=== PATIENT | male | born 1960 | race Caucasian/White ===

== ENCOUNTER 2016-07-12 08:57 | Emergency (ER) ==
[2016-07-12 09:04] VITALS: BP 203/109; TEMP 96.7; BMI 28.3
[2016-07-12] MEDS ORDERED: NITROSTAT SL PRN (09:16)
--- NOTE | 2016-07-12 09:18 | ED.PDOC ---
General ED Provider: Dr. COCO HERNANDEZ JR Chief Complaint: Hypertension Stated Complaint: started having high blood pressure 1 week ago. feels shaky. states he has had intermittent chest pain for 3 days. states he has been taking his medicine [End]1 WEEK 96.7 71 18 97 203/109 10 227/145 AT HOME Time Seen by Physician: 09:17 Mode of Arrival: Walk-In Information Source: Patient Exam Limitations: No limitations Primary Care Provider: JASMIN CARRERA Nursing and Triage Documentation Reviewed and Agree: No Review of Systems - Review Of Systems Constitutional: Reports: Malaise Eyes: Reports: No symptoms Ears, Nose, Mouth, Throat: Reports: No symptoms Respiratory: Reports: No symptoms Cardiac: Reports: Chest pain (midsternal pleuritic) GI: Reports: No symptoms : Reports: No symptoms Musculoskeletal: Reports: Other Skin: Reports: No symptoms Neurological: Reports: No symptoms Endocrine: Reports: No symptoms Hematologic/Lymphatic: Reports: No symptoms All Other Systems: Other Past Medical History - Past Medical History Endocrine: Reports: None Cardiovascular: Reports: [place], Hypertension Respiratory: Reports: None Hematological: Reports: None Gastrointestinal: Reports: None Genitourinary: Reports: None Neuro/Psych: Reports: Other (HTN [place] pins to left arm, fell off roof in 1997 and was in coma for 9 days -states head injury from crowbr into skull at that time) Musculoskeletal: Reports: None Cancer: Reports: None Other Pertinent Past Medical History: HTN [place] pins to left arm, fell off roof in 1997 and was in coma for 9 days - Surgical History General Surgical History: Reports: Orthopedic (HTN [place] pins to left arm, fell off roof in 1997 and was in coma for 9 days ) - Family History Family History: Reports: Unknown - Social History Smoking Status: Current every day smoker, Heavy tobacco smoker Hx Substance Use: No Alcohol Screening: None Physical Exam - Physical Exam Appearance: Well-appearing Ill-appearing: Mild Pain Distress: Mild Eyes: BANDAR, EOMI, Conjunctiva clear ENT: Ears normal, Nose normal, Oropharynx normal Neck: Supple Respiratory: Airway patent, Breath sounds equal, Respirations nonlabored, Rhonchi Cardiovascular: RRR, Pulses normal, No rub, No murmur GI/: Soft, Tender (epigasstrium and whole abdomen sim9at to pain with chest wallpalpation (midsternal tenderness)) Musculoskeletal: Normal strength, ROM intact, No edema, No calf tenderness Skin: Warm, Dry, Normal color Neurological: Sensation intact, Motor intact, Reflexes intact, Cranial nerves intact, Alert, Oriented (slow to answer- defers to head injury) Psychiatric: Affect appropriate, Mood appropriate Interpretation - Radiology Interpretation Radiology Interpretation By: Radiologist Radiology Results: Negative Exam Interpreted: CT Scan (abdomen- unchanged liver lesion) Radiology Interpretation By: Radiologist Radiology Results: No acute changes Exam Interpreted: CXR - EKG Interpretation Time of EKG #1: 09:25 Rate: Normal Rhythm: Sinus [place]: Left Re-Evaluation - Re-Evaluation Time of Re-Evaluation: 10:30 (torres dlab ddimeris in ng not mg not elevated) Critical Care Note - Critical Care Note Total Time (mins): 10 Course - Course Hematology/Chemistry: 07/12/16 09:20 07/12/16 09:20 Orders, Labs, Meds: Lab Review 07/12/16 09:20 WBC 7.55 RBC 4.71 Hgb 14.2 Hct 43.0 MCV 91.3 MCH 30.1 MCHC 33.0 RDW Coeff of Chance 12.8 Plt Count 186 Immature Gran % (Auto) 0.3 Neut % (Auto) 63.8 Lymph % (Auto) 23.4 [place] % (Auto) 9.1 Eos % (Auto) 2.6 Baso % (Auto) 0.8 Immature Gran # (Auto) 0.0 Neut # 4.8 Lymph # 1.8 [place] # 0.7 Eos # 0.2 Baso # 0.1 D-Dimer 369.85 H Sodium 141 Potassium 4.0 Chloride 105 Carbon Dioxide 28 Anion Gap 12.0 BUN 12 Creatinine 1.17 H Estimated GFR (MDRD) 65.00 BUN/Creatinine Ratio 10.25 Glucose 91 Calcium 8.8 Total Bilirubin 0.36 AST 18 ALT 25 Alkaline Phosphatase 74 Total Creatine Kinase 78 Troponin I 0.0250 B-Natriuretic Peptide 41 Total Protein 6.8 Albumin 3.8 Globulin 3.0 Albumin/Globulin Ratio 1.27 Orders Category Date Time Status EKG-(ED ONLY) Stat CARDIO 07/12/16 09:16 Completed ED RADIO SCRIPT WRITER APPLIED .ONCE EMERGENCY 07/12/16 09:16 Active ED IV/MEDIPORT/POWERPORT .ONCE EMERGENCY 07/12/16 09:16 Active B-TYPE NATRIURETIC PEPTIDE Stat LAB 07/12/16 09:20 Completed CBC W/ AUTO DIFF Stat LAB 07/12/16 09:20 Completed COMPREHENSIVE METABOLIC PANEL Stat LAB 07/12/16 09:20 Completed CREATINE KINASE Stat LAB 07/12/16 09:20 Completed D-DIMER Stat LAB 07/12/16 09:20 Completed TROPONIN I Stat LAB 07/12/16 09:20 Completed 0.9 % Sodium Chloride [Saline Flush] MEDS 07/12/16 09:16 Active 1 syr IVF PRN PRN Nitroglycerin [Nitrostat] MEDS 07/12/16 09:16 Active 0.4 mg SL Q5MIN X 3 DOSES PRN CHEST, 1V AP ONLY Stat RADS 07/12/16 09:[address] ABDOMEN/PELVIS WO CONTRAST Stat RADS 07/12/16 09:21 Taken Medications Discontinued Medications Generic Name Dose Route Start Last Admin Trade Name Freq PRN Reason Stop Dose Admin Nitroglycerin 0.4 mg 07/12/16 09:16 Nitrostat SL Q5MIN X 3 DOSES PRN Chest Pain Sodium Chloride 1 syr 07/12/16 09:16 07/12/16 09:00 Saline Flush IVF 1 syr PRN PRN Administration To flush IV Vital Signs: Temp Pulse Resp BP Pulse Ox 07/12/16 08:58 96.7 F L 71 18 203/109 H 97 [place] Risk Score M[place] Risk Score: Risk Score Odds of by 30D 0 0.1 (0.1-0.2) 1 0.3 (0.2-0.3) 2 0.4 (0.3-0.5) 3 0.7 (0.6-0.9) 4 1.2 (1.0-1.5) 5 2.2 (1.9-2.6) 6 3.0 (2.5-3.6) 7 4.8 (3.8-6.1) Departure - Departure Time of Disposition: 11:04 Disposition: HOME SELF-CARE Discharge Problem: Chest wall pain, Hypertension Instructions: Chronic Hypertension (ED), Thoracic Pain (ED) Condition: Good Pt referred to PMD for follow-up: Yes Additional Instructions: Please follow-up with Dr. Stokes in 1-2 days. Please call your Family Physician as soon as possible to schedule a follow-up appointment. increase blood pressure medication as prescribed Lopressor 50mg twice a day may use [place] for chest wall pain may also use Naprosyn for pain in chest discuss blood pressure and chest wall pain with Dr Stokes Prescriptions: Metoprolol Tartrate [Lopressor] 50 mg PO BID #60 tablet Allergies/Adverse Reactions: Allergies No Known Allergies Allergy (Verified 07/12/16 09:04) Home Medications: Ambulatory Orders Aspirin [Aspirin EC] 81 mg PO DAILYWM 07/12/16 Gabapentin [Neurontin] 300 mg PO TID 07/12/16 Hydrochlorothiazide 12.5 mg PO DAILY 07/12/16 Hydrocodone Bit/Acetaminophen [[place] 7.5-325] 1 each PO TID 07/12/16 Lisinopril [Zestril] 40 mg PO DAILY 07/12/16 Metoprolol Tartrate [Lopressor] 25 mg PO BID 07/12/16 Metoprolol Tartrate [Lopressor] 50 mg PO BID #60 tablet 07/12/16 Tizanidine HCl [Zanaflex] 4 mg PO Q8H PRN 07/12/16
[2016-07-12 09:30] LABS: BASOPHILS # (AUTO) 0.1 K/uL (0-0.2); BASOPHILS % (AUTO) 0.8 % (0.0-3.0); EOSINOPHILS # (AUTO) 0.2 K/ul (0.0-0.7); EOSINOPHILS % (AUTO) 2.6 % (0.0-7.0); HEMOGLOBIN 14.2 g/dl (14.0-18.0); IMMATURE GRANULOCYTE % (AUTO) 0.3 % (0.0-5.0); LYMPHOCYTES # (AUTO) 1.8 K/uL (0.60-3.4); LYMPHOCYTES % (AUTO) 23.4 (10.0-50.0); MEAN CORPUSCULAR HEMOGLOBIN 30.1 pg (27.0-31.0); MEAN CORPUSCULAR VOLUME 91.3 fl (80.0-94.0); MONOCYTES # (AUTO) 0.7 K/uL (0.4-2.0); MONOCYTES % (AUTO) 9.1 (0-10); NEUTROPHILS # (AUTO) 4.8 K/ul (2.0-6.9); NEUTROPHILS % (AUTO) 63.8; PLATELET COUNT 186 10^3/uL (140-440); RED BLOOD COUNT 4.71 10^6/ul (4.70-6.10); WHITE BLOOD COUNT 7.55 K/ul (4.2-10.2)
[2016-07-12 09:55] LABS: ALBUMIN 3.8 g/dL (3.4-5.0); ALBUMIN/GLOBULIN RATIO 1.27; BILIRUBIN,TOTAL 0.36 mg/dL (0.00-1.20); BUN/CREATININE RATIO 10.25; CALCIUM 8.8 mg/dL (8.2-10.2); CREATININE 1.17 mg/dL (0.60-1.10); TOTAL PROTEIN 6.8 g/dL (6.4-8.2); TROPONIN I 0.025 ng/ml (0.0000-0.4000)
--- NOTE | 2016-07-14 09:36 | CT ---
EXAM: CT examination of the abdomen pelvis without intravenous or oral contrast, axial, sagittal, a nd coronal imaging. COMPARISON: CT examination of the abdomen pelvis performed on 05/12/2012. Reason for study: Abdominal tenderness, sharper right chest pain. FINDINGS: The mild bibasilar dependent atelectasis The heart is not enlarged. The spleen, gallbladder, pancreas, kidneys, and right adrenal gland are unremarkable. There is a sim ilar appearing 1.7 cm low attenuating lesion in the right hepatic lobe best seen on axial image 33. The previously described 1 cm low attenuating lesion in the left hepatic lobe is not well seen on t he noncontrast examination. Similar appearing left adrenal adenoma (-8 HU) is not significantly jose nged. There are several small colonic diverticula without surrounding inflammatory change. The bow el gas pattern is unremarkable. The visualized osseous structures are unremarkable save for some mil d degenerative disease. IMPRESSION: 1. No acute intra-abdominal findings. 2. Similar appearing low attenuating lesion in the right hepatic lobe is unable to be fully charact erize without intravenous contrast. 3. Similar appearing left adrenal adenoma. 4. Diverticulosis without diverticulitis. 5. Degenerative disease.
--- NOTE | 2016-07-14 09:37 | DI ---
Single radiographic image of the chest. COMPARISON: 03/23/2015. Reason for study: Chest pain. FINDINGS: No pneumothorax, pleural effusion, or focal consolidation. The cardiac silhouette is not enlarged. Pulmonary vascularity is within normal limits. IMPRESSION: No acute cardiothoracic findings.
== END 2016-07-12 11:17 | disposition home or self-care (01) ==
LOC: ED 08:57
DX: R07.89 Other chest pain (principal); I10 Essential (primary) hypertension; M54.6 Pain in thoracic spine; I25.2 Old myocardial infarction; F17.210 Nicotine dependence, cigarettes, uncomplicated
CPT/HCPCS: 36415; 80053; 82550; 83880; 84484; 85025; 85379; 93005; 93010; 99283

== ENCOUNTER 2016-07-20 06:22 | Outpatient (CLI) ==
--- NOTE | 2016-07-21 08:39 | ECHO2D ---
Date of Exam: 07/20/16 Ordering Physician: JASMIN CARRERA Reason for Echo: CHEST PAIN, HYPERTENSION, SOB M-Mode Normal Adult Results LV Dimensions Normal Adult Results AoV Opening excursions >1.6 >1.6 LVEDD-base- 3.5-5.8 4.4 Ao root dimensions 2.0-3.7 3.3 LVESD-base- 3.1-4.6 L. Atrium dimensions 1.9-3.8 4.7 Post. Wall thickness 0.8-1.1 1.4 IV septum (thickness) 0.7-1.2 1.5 Post. Wall excursion 0.72-1.3 NORMAL Septal motion NORMAL Systolic motion R. Ventricular cavity 1.5-2.0 NORMAL LVEF 60% 56% Paradoxical septal wall motion NORMAL 2-D : NORMAL VALVES--NORMAL LEFT VENTRICULAR CONTRACTILITY--NO EFFUSION, NO THROMBUS, ENLARGED LEFT ATRIAL CAVITY M-MODE: MV: NORMAL AV: NORMAL TV: NORMAL PV: CHAMBER SIZE: ENLARGED LEFT ATRIAL CAVITY WALL MOTION: NORMAL PERICARDIUM: NORMAL INTERPRETATION: 1. MODERATE LEFT VENTRICULAR HYPERTROPHY WITH ENLARGED LEFT ATRIAL CAVITY 2. NORMAL LEFT VENTRICULAR CONTRACTILITY 3. NORMAL VALVES MTDD
== END 2016-07-20 06:23 | disposition home or self-care (01) ==
LOC: CAR 06:22
PROVIDERS: ATTEND Internal Medicine
DX: R07.9 Chest pain, unspecified (principal); R06.02 Shortness of breath; I10 Essential (primary) hypertension

== ENCOUNTER 2016-07-21 06:19 | Outpatient (CLI) ==
--- NOTE | 2016-07-21 08:23 | STRESSECHO ---
Date of Test: 07/21/16 Reason for Exam: CHEST PAIN, HTN, SOB Ordering Physician: JASMIN CARRERA Current Medications: LISINOPRIL, HCTZ, NEURONTIN, METOPROLOL, GABAPENTIN Physical Findings: S1, S2, NO S3 Resting EKG: SINUS RHYTHM/NO ACUTE CHANGES Target Heart Rate: 141/166 STAGE MPH/GRADE HEART RATE BPM BLOOD PRESSURE mmhg RHYTHM S-T SEGMENT +/- UP DOWN SYMPTOMS,COMMENTS At Rest 60 155/88 SR X NONE 1 1.7/10% 100 162/92 SR X NONE 2 2.5/12% 117 160/90 SR X NONE 3 3.4/14% 4 4.2/16% 5 5.0/18% Immediately after 137 SR X SHORT OF BREATH Durations of Exercise: 7:48 Maximum Heart Rate Reached: 132 Reason for Termination: SHORT OF BREATH INTERPRETATION: 92% OXYGEN SATURATION WITH EXERCISE ON ROOM AIR METS 10.1 1. NO EVIDENCE OF ISCHEMIA BY ST-T WAVE 2. GOOD EXERCISE TOLERANCE 3. NO CHEST PAIN OR DISCOMFORT 4. NO ARRHYTHMIA 5. BLOOD PRESSURE RESPONSE: HYPERTENSION AT REST AND WITH EXERCISE (BORDERLINE) NORMAL LEFT VENTRICULAR CONTRACTILITY--RESTING AND POST EXERCISE MTDD
--- NOTE | 2016-07-21 08:25 | ECHOSTRESS ---
Date of Exam: 07/21/16 Ordering Physician: JASMIN CARRERA Reason for Echo: CHEST PAIN, HTN, SOB, STRESS TEST--NO ISCHEMIA M-Mode Normal Adult Results LV Dimensions Normal Adult Results AoV Opening excursions >1.6 LVEDD-base- 3.5-5.8 Ao root dimensions 2.0-3.7 LVESD-base- 3.1-4.6 L. Atrium dimensions 1.9-3.8 Post. Wall thickness 0.8-1.1 IV septum (thickness) 0.7-1.2 Post. Wall excursion 0.72-1.3 Septal motion Systolic motion R. Ventricular cavity 1.5-2.0 LVEF 60% Paradoxical septal wall motion 2-D: NORMAL LEFT VENTRICULAR CONTRACTILITY--RESTING AND POST EXERCISE M-MODE: MV: AV: TV: PV: CHAMBER SIZE: WALL MOTION: NORMAL LEFT VENTRICULAR CONTRACTILITY--RESTING AND POST EXERCISE PERICARDIUM: INTERPRETATION: 1. NORMAL LEFT VENTRICULAR CONTRACTILITY--RESTING AND POST EXERCISE MTDD
== END 2016-07-21 06:20 | disposition home or self-care (01) ==
LOC: CAR 06:19
PROVIDERS: ATTEND Internal Medicine
DX: R07.9 Chest pain, unspecified (principal); R06.02 Shortness of breath; I10 Essential (primary) hypertension

== ENCOUNTER 2016-11-05 08:45 | Outpatient (CLI) ==
[2016-11-05 09:10] LABS: BASOPHILS # (AUTO) 0.1 K/uL (0-0.2); BASOPHILS % (AUTO) 0.9 % (0.0-3.0); EOSINOPHILS # (AUTO) 0.2 K/ul (0.0-0.7); EOSINOPHILS % (AUTO) 1.8 % (0.0-7.0); HEMATOCRIT 43.9 % (42.0-52.0); HEMOGLOBIN 15.1 g/dl (14.0-18.0); IMMATURE GRANULOCYTE % (AUTO) 0.4 % (0.0-5.0); LYMPHOCYTES # (AUTO) 1.9 K/uL (0.60-3.4); LYMPHOCYTES % (AUTO) 23.2 (10.0-50.0); MEAN CORPUSCULAR HEMOGLOBIN 30.6 pg (27.0-31.0); MEAN CORPUSCULAR HGB CONC 34.4 (31.8-35.4); MONOCYTES # (AUTO) 0.6 K/uL (0.4-2.0); MONOCYTES % (AUTO) 7.5 (0-10); NEUTROPHILS # (AUTO) 5.4 K/ul (2.0-6.9); NEUTROPHILS % (AUTO) 66.2; PLATELET COUNT 191 10^3/uL (140-440); RED BLOOD COUNT 4.93 10^6/ul (4.70-6.10); WHITE BLOOD COUNT 8.18 K/ul (4.2-10.2)
[2016-11-05 09:56] LABS: ALBUMIN 3.8 g/dL (3.4-5.0); ALBUMIN/GLOBULIN RATIO 1.19; ANION GAP 9.3; BILIRUBIN,TOTAL 0.46 mg/dL (0.00-1.20); BUN/CREATININE RATIO 10.25; CALCIUM 9.2 mg/dL (8.2-10.2); CHOL/HDL RATIO 4.8 (4.5-6.4); CREATININE 1.17 mg/dL (0.60-1.10); POTASSIUM 4.3 mmol/L (3.5-5.1)
== END 2016-11-05 08:46 | disposition home or self-care (01) ==
LOC: LAB 08:45
PROVIDERS: ATTEND Internal Medicine
DX: I10 Essential (primary) hypertension (principal); J44.9 Chronic obstructive pulmonary disease, unspecified; E78.5 Hyperlipidemia, unspecified; Z12.5 Encounter for screening for malignant neoplasm of prostate
CPT/HCPCS: 36415; 80053; 80061; 83036; 84443; 85025

== ENCOUNTER 2017-02-23 09:10 | Outpatient (CLI) ==
[2017-02-23 09:29] LABS: BASOPHILS # (AUTO) 0.1 K/uL (0-0.2); BASOPHILS % (AUTO) 0.7 % (0.0-3.0); EOSINOPHILS # (AUTO) 0.2 K/ul (0.0-0.7); EOSINOPHILS % (AUTO) 2.3 % (0.0-7.0); HEMATOCRIT 40.2 % (42.0-52.0); HEMOGLOBIN 14.2 g/dl (14.0-18.0); IMMATURE GRANULOCYTE % (AUTO) 0.4 % (0.0-5.0); LYMPHOCYTES # (AUTO) 2.1 K/uL (0.60-3.4); LYMPHOCYTES % (AUTO) 28.3 (10.0-50.0); MEAN CORPUSCULAR HEMOGLOBIN 31.1 pg (27.0-31.0); MEAN CORPUSCULAR HGB CONC 35.3 (31.8-35.4); MEAN CORPUSCULAR VOLUME 88.2 fl (80.0-94.0); MONOCYTES # (AUTO) 0.6 K/uL (0.4-2.0); MONOCYTES % (AUTO) 8.6 (0-10); NEUTROPHILS # (AUTO) 4.4 K/ul (2.0-6.9); NEUTROPHILS % (AUTO) 59.7; PLATELET COUNT 171 10^3/uL (140-440); RED BLOOD COUNT 4.56 10^6/ul (4.70-6.10); WHITE BLOOD COUNT 7.42 K/ul (4.2-10.2)
[2017-02-23 10:06] LABS: ALBUMIN 3.6 g/dL (3.4-5.0); ALBUMIN/GLOBULIN RATIO 1.2; ANION GAP 11.7; BILIRUBIN,TOTAL 0.39 mg/dL (0.00-1.20); BUN/CREATININE RATIO 14.78; CALCIUM 9.1 mg/dL (8.2-10.2); CHOL/HDL RATIO 4.6 (4.5-6.4); CREATININE 1.15 mg/dL (0.60-1.10); POTASSIUM 3.7 mmol/L (3.5-5.1); TOTAL PROTEIN 6.6 g/dL (6.4-8.2)
== END 2017-02-23 09:11 | disposition home or self-care (01) ==
LOC: LAB 09:10
PROVIDERS: ATTEND Internal Medicine
DX: E78.5 Hyperlipidemia, unspecified (principal); I10 Essential (primary) hypertension; J44.9 Chronic obstructive pulmonary disease, unspecified; N18.9 Chronic kidney disease, unspecified; F17.210 Nicotine dependence, cigarettes, uncomplicated
CPT/HCPCS: 36415; 80053; 80061; 83036; 84443; 85025

== ENCOUNTER 2017-07-07 09:57 | Outpatient (CLI) | END 2017-07-07 09:58 | disposition home or self-care (01) | LOC: LAB 09:57 | PROVIDERS: ATTEND Internal Medicine | DX: E78.5 Hyperlipidemia, unspecified (principal); R73.9 Hyperglycemia, unspecified; I10 Essential (primary) hypertension | CPT/HCPCS: 36415; 80053; 80061; 83036; 84443; 85025 ==

== ENCOUNTER 2018-02-20 09:53 | Outpatient (CLI) | END 2018-02-20 09:54 | disposition home or self-care (01) | LOC: RHC-LAB 09:53 | PROVIDERS: ATTEND Emergency Medicine | DX: I10 Essential (primary) hypertension (principal); I25.10 Atherosclerotic heart disease of native coronary artery without angina pectoris; F17.200 Nicotine dependence, unspecified, uncomplicated; Z12.5 Encounter for screening for malignant neoplasm of prostate | CPT/HCPCS: 36415; 80053; 80061; 84443; 85025 ==

== ENCOUNTER 2018-08-17 07:53 | Outpatient (CLI) | END 2018-08-17 07:54 | disposition home or self-care (01) | LOC: RHC-LAB 07:53 | PROVIDERS: ATTEND Nurse Practitioner Family | DX: I10 Essential (primary) hypertension (principal) | CPT/HCPCS: 36415; 80053; 85025 ==

== ENCOUNTER 2019-02-27 07:47 | Outpatient (CLI) | END 2019-02-27 07:48 | disposition home or self-care (01) | LOC: RHC-LAB 07:47 | PROVIDERS: ATTEND Nurse Practitioner Family | DX: I10 Essential (primary) hypertension (principal); Z12.5 Encounter for screening for malignant neoplasm of prostate | CPT/HCPCS: 36415; 80061 ==